=== PATIENT | female | born 1945 | race Caucasian/White ===

== ENCOUNTER 2024-03-19 07:50 | Day surgery (SDC) | payer MEDICARE, OTHER ==
--- NOTE | 2024-03-18 08:45 | HP ---
HISTORY AND PHYSICAL ANTICIPATED DATE OF PROCEDURE: 03/19/2024. HISTORY OF PRESENT ILLNESS: Patient is a 79-year-old female who presents for endoscopy. Last colonoscopy was in 2008. She has no colon complaints. She has no upper GI complaints. She denies history of polyps in the past. PAST MEDICAL HISTORY: Anxiety, depression, hyperlipidemia, heart disease. MEDICATIONS: Vitamin B, omega-3, Cymbalta, VESIcare, vitamin D, chondroitin/glucosamine, multivitamin, nitroglycerin. ALLERGIES: None reported. PAST SURGICAL HISTORY: Back surgery, tubal ligation. SOCIAL HISTORY: Occasional alcohol. Denies smoking. FAMILY HISTORY: Breast cancer. REVIEW OF SYSTEMS: CONSTITUTIONAL: Denies fever or chills. CHEST: Denies shortness of breath. CARDIOVASCULAR: Denies chest pain. ABDOMEN: Denies abdominal pain. PHYSICAL EXAMINATION: GENERAL: No acute distress. CARDIOVASCULAR: Regular rate and rhythm. RESPIRATORY: Nonlabored. No shortness of breath. ABDOMEN: Soft. ASSESSMENT: Screening. PLAN: Colonoscopy with Dr. Mason Dalton. This report was dictated for Dr. Dalton by Belgica Jay NP.
[2024-03-19] MEDS ORDERED: Lactated Ringers 1,000 ML IV ONE (08:17)
[2024-03-19] MEDS: Lactated Ringers 1,000 ML IV SCH (08:24)
[2024-03-19 08:39] VITALS: TEMP 97.4
[2024-03-19] MEDS ORDERED: DIPRIVAN 200 MG/20 ML IV ONE (09:40)
[2024-03-19] MEDS ORDERED: Versed 2 MG/2 ML Injection ONE (09:40)
[2024-03-19 10:21] VITALS: BP 151/81; PULSE 71; RESP 18; O2SAT 96
--- NOTE | 2024-03-20 11:53 | OP ---
SURGERY DATE/TIME: 03/19/2024 [id number] - [id number] PREOPERATIVE DIAGNOSIS: Screening. POSTOPERATIVE DIAGNOSIS: Moderate sigmoid colon spasm, mild diverticulosis of the sigmoid colon, moderate internal hemorrhoids. PROCEDURE: Colonoscopy completed to the cecum. SURGEON: Mason Dalton MD ANESTHESIA: MAC general. COMPLICATIONS: None. CONDITION: Stable. WITHDRAWAL TIME: 6 minutes. PREP SCORE: Excellent. FINDINGS: No mucosal lesions. DESCRIPTION OF PROCEDURE AND FINDINGS: The scope was introduced. Anal digital examination was satisfactory. Tone satisfactory. Prep score was excellent, just a minimal amount of liquid at the rectum and at the cecum. The scope was navigated over to the cecum. There was a little spasm of the mid sigmoid colon. There was fairly mild sigmoid diverticulosis. The mucosa was excellent. Base of the cecum normal. Appendiceal orifice normal. Ileocecal valve slightly prominent, totally normal. On circumferential withdrawal, ascending, hepatic, transverse, splenic, descending, sigmoid, rectum, and anus as noted. Withdrawal time of 6-1/2 minutes. Patient tolerated the procedure well. No mucosal lesions. Findings were discussed and pictures were given to her in the waiting room. FOLLOWUP: She is 79, a 3 to 5-year followup.
== END 2024-03-19 10:27 | disposition home or self-care (01) ==
LOC: SDC 07:50
PROVIDERS: ATTEND Surgery
DX: Z12.11 Encounter for screening for malignant neoplasm of colon (principal); K58.9 Irritable bowel syndrome, unspecified; K57.30 Diverticulosis of large intestine without perforation or abscess without bleeding; K64.8 Other hemorrhoids
CPT/HCPCS: 99100; J2250; J2704